=== PATIENT | female | born 1970 ===

== ENCOUNTER → 2023-05-17 | Outpatient (CLI) | payer OTHER ==
[2023-05-17 12:41] LABS: BASOPHILS ABSOLUTE AUTO 0.05 K/mm3 (0.00-0.23); BASOPHILS PERCENT AUTO 1 % (0-2); EOSINOPHILS PERCENT AUTO 0 % (0-6); Hematocrit 45.8 % (33.0-51.0); Hemoglobin 15.5 g/dL (11.5-16.0); IMMATURE GRAN ABSOLUTE AUTO 0.01 K/mm3 (0.00-0.10); IMMATURE GRAN PERCENT AUTO 0 % (0-1); LYMPHOCYTES ABSOLUTE AUTO 1.76 K/mm3 (0.84-5.20); LYMPHOCYTES PERCENT AUTO 28 % (21-46); MONOCYTES ABSOLUTE AUTO 0.42 K/mm3 (0.16-1.47); MONOCYTES PERCENT AUTO 7 % (4-13); Mean Corpuscular HGB 30.2 pg (26.0-34.0); Mean Corpuscular HGB Conc 33.8 g/dL (31.5-36.5); Mean Corpuscular Volume 89 fL (80-100); Mean Platelet Volume 11.1 fL (9.1-12.4); NEUTROPHILS ABSOLUTE AUTO 4.05 K/mm3 (1.96-9.15); NEUTROPHILS PERCENT AUTO 64 % (41-73); Platelet Count 308 K/mm3 (150-400); RDW Coefficient Variation 11.8 % (11.7-14.2); Red Blood Cell Count 5.13 M/mm3 (3.80-5.20); White Blood Cell Count 6.29 K/mm3 (4.00-11.30)
[2023-05-17 13:29] LABS: CHOL/HDL RATIO 4.4; Cholesterol 306 mg/dL (50-200); HDL Cholesterol 69 mg/dL (>39); LDL/HDL RATIO 3.1; Low Density Lipoprotein Chol 211 mg/dL (0-110); Triglycerides 129 mg/dL (30-160); Triiodothyronine, Free 2.17 pg/mL (2.18-3.98); Very Low Density Lipoprot Chol 26 mg/dL (6-32)
[2023-05-19 00:59] LABS: THYROID PEROXIDASE (TPO) AB 8.8 IU/mL (0.0-9.0)
[2023-05-19 03:04] LABS: THYROGLOBULIN ANTIBODY 953.8 IU/mL (0.0-4.0)
[2023-05-20 20:07] LABS: A/G RATIO 1.7 (1.2-2.2); ALKALINE PHOSPHATASE, S 102 IU/L (44-121); ALT (SGPT) 20 IU/L (0-32); AST (SGOT) 22 IU/L (0-40); BILIRUBIN, TOTAL 0.3 mg/dL (0.0-1.2); BUN 17 mg/dL (6-24); BUN/CREATININE RATIO 20 (9-23); CARBON DIOXIDE, TOTAL 18 mmol/L (20-29); CHLORIDE, SERUM 102 mmol/L (96-106); CREATININE, SERUM 0.83 mg/dL (0.57-1.00); GLOBULIN, TOTAL 2.8 g/dL (1.5-4.5); PROTEIN, TOTAL, SERUM 7.6 g/dL (6.0-8.5); SODIUM, SERUM 143 mmol/L (134-144)
== END | disposition home or self-care (01) ==
LOC: LAB SHORT 12:05 → LAB 12:05
PROVIDERS: Nurse Practitioner Family
DX: Z00.00 Encounter for general adult medical examination without abnormal findings (principal); E03.9 Hypothyroidism, unspecified; E55.9 Vitamin D deficiency, unspecified; E78.5 Hyperlipidemia, unspecified
CPT/HCPCS: 80053; 80061; 82306; 84439; 84443; 84481; 85025; 86376; 86800